=== PATIENT | male | born 1985 | race Caucasian/White ===

== ENCOUNTER 2016-08-18 05:50 | Emergency (ER) | payer SELFPAY ==
--- NOTE | 2016-08-18 06:02 | EDPHY ---
H & P Stated Complaint: rlq abd pain since 3:30 with vomiting HPI/ROS: HPI CHIEF COMPLAINT: Abdominal pain, nausea vomiting, right flank pain HISTORY OF PRESENT ILLNESS: This patient very pleasant 31-year-old male he denies any significant medical or surgical history, he presents to the emergency room with right flank pain and right lower quadrant pain. He describes this as sudden onset at 3:00 a.m. sharp in nature radiating from his right flank to his right lower abdomen and at times has pain to his right testicle. He denies urinary issues specifically denies dysuria or blood in his urine or urinary hesitancy or urgency. Denies fever he does endorse nausea. No vomiting. No history of kidney stones. Past Medical History: No significant medical history Past Surgical History: No significant surgical history Social History: Denies use of drugs alcohol tobacco products, works as a [employer] Family History: Noncontributory ROS REVIEW OF SYSTEMS: A comprehensive 10 point review of systems is otherwise negative aside from elements mentioned in the history of present illness. Exam Constitutional triage nursing summary reviewed, vital signs reviewed, awake/ alert. Eyes normal conjunctivae and sclera, EOMI, PERRLA. HENT normal inspection, atraumatic, moist mucus membranes, no epistaxis, neck supple/ no meningismus, no raccoon eyes. Respiratory clear to auscultation bilaterally, normal breath sounds, no respiratory distress, no wheezing. Cardiovascular rate normal, regular rhythm, no murmur, no edema, distal pulses normal. Gastrointestinal soft, tenderness palpation right CVA, right lower quadrant , no rebound, no guarding, normal bowel sounds, no distension, no pulsatile mass. Genitourinary no CVA tenderness. Musculoskeletal no midline vertebral tenderness, full range of motion, no calf swelling, no tenderness of extremities, no meningismus, good pulses, neurovascularly intact. Skin pink, warm, & dry, no rash, skin atraumatic. Neurologic awake, alert and oriented x 3, AAOx3, moves all 4 extremities equally, motor intact, sensory intact, CN II-XII intact, normal cerebellar, normal vision, normal speech. Psychiatric normal mood/affect. Heme/Lymph/Immune no lymphadenopathy. Differential diagnosis includes but is not limited to and in no particular order : kidney stone, hydroureter, pyelonephritis, UTI, ruptured AAA, appendicitis, Bowel obstruction, gallbladder disease, diverticulitis, colitis, enteritis, perforated viscus, gastritis, GERD, esophagitis, urinary tract infection, pyelonephritis, kidney stones Medical Decision Making: The patient had an IV established will obtain blood work, patient will need a CT scan abdomen pelvis without IV contrast for kidney stone evaluation. He will be medicated with IV fluids, IV Dilaudid for pain control and Zofran for nausea. Also check abdominal blood work. Re-evaluation: 0617: CT scan of the abdomen pelvis without IV contrast The results of the study are this shows a very tiny less than 1 mm stone in the right UVJ with mild hydronephrosis. The study was read by Dr. Lopez. I viewed the images myself on the PACS system. 0647: I did re-evaluate this patient is resting comfortably he does have a 2/ 10 pain at this time. I have ordered him 30 mg IV Toradol. He will go home with a urine strainer, Zofran, [place], Flomax. I encouraged him drink lots of fluids use a urine strainer he should pass this very small 1 mm stone in next 72 hours. He has also been referred to Urology. Source: Patient - Personal History Current Tetanus/Diphtheria Vaccine: Yes Current Tetanus Diphtheria and Acellular Pertussis (TDAP): Yes - Medical/Surgical History Hx Asthma: No Hx Chronic Respiratory Disease: No Hx Diabetes: No Hx Cardiac Disease: No Hx Renal Disease: No Hx Cirrhosis: No Hx Alcoholism: No Hx HIV/AIDS: No Hx Splenectomy or Spleen Trauma: No Other PMH: denies - Social History Smoking Status: Never smoked Constitutional: Initial Vital Signs Heart Rate 107 H 08/18/16 05:52 Respiratory Rate 20 08/18/16 05:52 Blood Pressure 130/112 H 08/18/16 05:52 O2 Sat (%) 98 08/18/16 05:52 O2 Delivery Mode Room Air Allergies/Adverse Reactions: No Known Allergies Allergy (Unverified 08/18/16 05:56) Home Medications: Medication Instructions Recorded Hydrocodone/APAP 5/325 [[place] 1 - 2 tab PO Q4H PRN #10 tab 08/18/16 5/325] Ondansetron HCl [Zofran] 4 mg PO Q4-6PRN PRN #10 tablet 08/18/16 Tamsulosin HCl [Flomax 0.4 MG (*)] 0.4 mg PO DAILY #10 cap 08/18/16 Medical Decision Making - Data Points Laboratory Results: Laboratory Results 08/18/16 06:14 08/18/16 06:14 08/18/16 06:14 WBC 15.83 H 10^3/uL (3.80-9.50) RBC 5.79 10^6/uL (4.40-6.38) Hgb 17.5 g/dL (13.7-17.5) Hct 50.1 % (40.0-51.0) MCV 86.5 fL (81.5-99.8) MCH 30.2 pg (27.9-34.1) MCHC 34.9 g/dL (32.4-36.7) RDW 12.3 % (11.5-15.2) Plt Count 244 10^3/uL (150-400) MPV 9.9 fL (8.7-11.7) Neut % (Auto) 82.5 H % (39.3-74.2) Lymph % (Auto) 11.1 L % (15.0-45.0) [place] % (Auto) 4.0 L % (4.5-13.0) Eos % (Auto) 1.3 % (0.6-7.6) Baso % (Auto) 0.5 % (0.3-1.7) Nucleat RBC Rel Count 0.0 % (0.0-0.2) Absolute Neuts (auto) 13.05 H 10^3/uL (1.70-6.50) Absolute Lymphs (auto) 1.76 10^3/uL (1.00-3.00) Absolute Monos (auto) 0.63 10^3/uL (0.30-0.80) Absolute Eos (auto) 0.21 10^3/uL (0.03-0.40) Absolute Basos (auto) 0.08 10^3/uL (0.02-0.10) Absolute Nucleated RBC 0.00 10^3/uL (0-0.01) Immature Gran % 0.6 % (0.0-1.1) Immature Gran # 0.10 10^3/uL (0.00-0.10) Sodium 142 mEq/L (134-144) Potassium 4.3 mEq/L (3.5-5.2) Chloride 107 mEq/L (97-110) Carbon Dioxide 20 L mEq/l (22-31) Anion Gap 15 mEq/L (8-16) BUN 18 mg/dL (7-23) Creatinine 1.1 mg/dL (0.7-1.3) Estimated GFR > 60 Glucose 133 H mg/dL (70-100) Calcium 9.1 mg/dL (8.5-10.4) Total Bilirubin 0.6 mg/dL (0.1-1.4) Conjugated Bilirubin 0.2 mg/dL (0.0-0.5) Unconjugated Bilirubin 0.4 mg/dL (0.0-1.1) AST 31 IU/L (17-59) ALT 57 IU/L (21-72) Alkaline Phosphatase 59 IU/L (38-126) Total Protein 7.2 g/dL (6.3-8.2) Albumin 4.1 g/dL (3.5-5.0) Lipase 65.0 IU/L (23-300) Medications Given: Discontinued Medications Hydromorphone HCl (Dilaudid) 1 mg IVP EDNOW ONE Stop: 08/18/16 06:06 Last Admin: 08/18/16 06:15 Dose: 1 mg Sodium Chloride (Ns) 1,000 mls @ 0 mls/hr IV ONCE ONE PRN Reason: Wide Open Stop: 08/18/16 06:06 Last Admin: 08/18/16 06:10 Dose: 1,000 mls Ondansetron HCl (Zofran) 4 mg IVP EDNOW ONE Stop: 08/18/16 06:06 Last Admin: 08/18/16 06:12 Dose: 4 mg Departure - Departure Disposition: Home, Routine, Self-Care Clinical Impression: Renal colic on right side Abdominal pain Qualifiers: Abdominal location: right lower quadrant Qualifier Code: (R10.31) Right lower quadrant pain Condition: Good Instructions: Kidney Stones (ED), Renal Colic (ED), Flank Pain (ED) Referrals: NONE *PRIMARY CARE P,. [Primary Care Provider] - As per Instructions Juan David Shaikh MD [Medical Doctor] - As per Instructions Prescriptions: Tamsulosin HCl [Flomax 0.4 MG (*)] 0.4 mg PO DAILY #10 cap Hydrocodone/APAP 5/325 [[place] 5/325] 1 - 2 tab PO Q4H PRN #10 tab PRN Reason: Pain, Moderate Ondansetron HCl [Zofran] 4 mg PO Q4-6PRN PRN #10 tablet PRN Reason: Nausea/Vomiting, Use 1st
[2016-08-18] MEDS ORDERED: ONDANSETRON 4 MG/2 ML VIAL ONE (06:03)
[2016-08-18] MEDS ORDERED: HYDROmorphONE/DILAUDID 1 MG/ML SYR IVP ONE (06:05)
[2016-08-18] MEDS ORDERED: ONDANSETRON 4 MG/2 ML VIAL IVP ONE (06:05)
[2016-08-18] MEDS ORDERED: NS 1,000 ML IV ONE (06:05)
[2016-08-18 06:17] LABS: % IMMATURE GRANULYOCYTES 0.6 % (0.0-1.1); ADD DIFF? NO; ADD MORPH? NO; ADD SCAN? NO; ATYPICAL LYMPHOCYTE FLAG 0 (0-99); FRAGMENT RBC FLAG 0 (0-99); HEMATOCRIT 50.1 % (40.0-51.0); HEMOGLOBIN 17.5 g/dL (13.7-17.5); LEFT SHIFT FLG 0 (0-99); LIPEMIA HEMOLYSIS FLAG 90 (0-99); MEAN CELL HEMOGLOBIN 30.2 pg (27.9-34.1); MEAN CELL HEMOGLOBIN CONCENTR. 34.9 g/dL (32.4-36.7); MEAN CELL VOLUME 86.5 fL (81.5-99.8); MEAN PLATELET VOLUME 9.9 fL (8.7-11.7); PLATELET CLUMPS FLAG 0 (0-99); PLATELET COUNT 244 10^3/uL (150-400); RED BLOOD CELL COUNT 5.79 10^6/uL (4.40-6.38); RED CELL DISTRIBUTION WIDTH 12.3 % (11.5-15.2)
[2016-08-18 06:39] LABS: ALANINE AMINOTRANSFERASE 57 IU/L (21-72); ALBUMIN 4.1 g/dL (3.5-5.0); ALKALINE PHOSPHATASE 59 IU/L (38-126); ANION GAP 15 mEq/L (8-16); ASPARTATE AMINOTRANSFERASE 31 IU/L (17-59); BILIRUBIN,TOTAL 0.6 mg/dL (0.1-1.4); BILIRUBIN-CONJUGATED 0.2 mg/dL (0.0-0.5); BILIRUBIN-UNCONJUGATED 0.4 mg/dL (0.0-1.1); CALCIUM 9.1 mg/dL (8.5-10.4); CARBON DIOXIDE 20 mEq/l (22-31); CHLORIDE 107 mEq/L (97-110); CREATININE 1.1 mg/dL (0.7-1.3); GLOMERULAR FILTRATION RATE > 60; GLUCOSE 133 mg/dL (70-100); POTASSIUM 4.3 mEq/L (3.5-5.2); SODIUM 142 mEq/L (134-144); TOTAL PROTEIN 7.2 g/dL (6.3-8.2)
[2016-08-18] MEDS ORDERED: KETOROLAC 30 MG/1 ML SDV IVP ONE (06:45)
[2016-08-18 07:34] VITALS: BP 161/94; PULSE 88; RESP 16; O2SAT 95
[2016-08-18 08:00] LABS: COLOR YELLOW; LEUKOCYTE ESTERASE,URINE NEGATIVE (NEGATIVE); NITRITE,URINE NEGATIVE (NEGATIVE)
[2016-08-18 08:04] LABS: MUCUS TRACE /lpf (NONE-1+)
--- NOTE | 2016-08-18 11:45 | CT ---
CT Scan of the Urinary Tract (Abdomen and Pelvis Without Contrast) Clinical Indications: Right-sided flank pain Technique: Multidetector helical CT imaging was performed from the kidneys to the urinary bladder wi thout contrast. Findings: Abdomen: There is a 7 mm calculus present within the right ureter at the UVJ, with secondary moderat e right hydronephrosis and perinephric urinary extravasation at the renal pelvis. Study otherwise unremarkable. The left renal collecting system is normal. Pelvis: No pelvic masses are seen. There is no free fluid seen. Impression: Tiny distal right ureteral calculus at the UVJ, with secondary moderate hydronephrosis an d perinephric urinary extravasation. The study was performed as an emergency on-call case and discussed by telephone with Dr. Yung at 6: 40 AM hrs. The final interpretation is concordant with the original communication. Attention: This CT examination is specifically designed to evaluate patients who are clinically susp ected of having acute obstructive uropathy. This examination does not use radiographic contrast, and as such, provides only a limited evaluation of the abdomen, pelvis and retroperitoneum. If there i s further clinical suspicion for pathological conditions other than obstructive uropathy, a complete CT evaluation of the abdomen and pelvis utilizing intravenous, oral, and rectal contrast should be co nsidered.
== END 2016-08-18 07:55 | disposition home or self-care (01) ==
DX: N23 Unspecified renal colic (principal)
CPT/HCPCS: 96374; J1170; J1885; J2405